=== PATIENT | male | born 1945 | race Caucasian/White ===

== ENCOUNTER → 2022-08-26 11:22 | Outpatient (CLI) | payer MEDICARE, OTHER, SELFPAY ==
[2022-08-26 12:51] LABS: Alanine Aminotransferase 23 IU/L (<50); Albumin 4.1 g/dL (3.5-5.0); Albumin Globulin Ratio 1.3 (1.0-2.8); Alkaline Phosphatase 57 U/L (38-126); Aspartate Aminotransferase 24 IU/L (17-59); BUN Creatinine Ratio 20.4 (6-22); Bilirubin Total 0.8 mg/dL (0.2-1.3); Blood Urea Nitrogen 22 mg/dL (9-20); Calcium 9.2 mg/dL (8.4-10.2); Carbon Dioxide 29 mmol/L (22-32); Chloride 102 mmol/L (98-107); Estimated Glomerular Filt Rate > 60 mL/min (>60); Globulin 3.2 g/dL (1.7-4.1); Glucose 90 mg/dL (80-110); HEMOLYSIS < 15 (0-50); Potassium 4.7 mmol/L (3.4-5.1); Sodium 138 mmol/L (137-145); Total Protein 7.3 g/dL (6.3-8.2)
[2022-08-26 13:09] LABS: Free T3, Triiodothyronine Free 4.32 pg/mL (2.77-5.27); Free T4, Direct Thyroxine 1.09 ng/dL (0.78-2.19)
[2022-08-26 13:20] LABS: Prostate Specific Antigen Scrn 1.66 ng/mL (0.1-4.0)
[2022-08-26 13:22] LABS: Thyroid Stimulating Hormone 3.16 uIU/mL (0.47-4.68)
[2022-08-26 15:37] LABS: Creatinine Urine Random 139.2 mg/dL
[2022-08-26 15:51] LABS: Microalbumin Urine Random < 0.6 mg/dL (0-1.6)
[2022-08-29 17:49] LABS: Hep C Virus Ab w/Reflex Quant NEGATIVE s/c (NEGATIVE)
== END ==
PROVIDERS: PCP Nurse Practitioner; Referring Provider Nurse Practitioner; Visit Provider Nurse Practitioner
DX: Z12.5 Encounter for screening for malignant neoplasm of prostate (principal); E78.5 Hyperlipidemia, unspecified; I10 Essential (primary) hypertension; Z11.59 Encounter for screening for other viral diseases
CPT/HCPCS: 80053; 82043; 82570; 84439; 84443; 84481; 86803; G0103

== ENCOUNTER → 2022-08-29 07:28 | Outpatient (CLI) | payer MEDICARE, OTHER, SELFPAY ==
[2022-09-01 18:49] LABS: Fecal Immunochemical Test Negative (Negative)
== END ==
PROVIDERS: PCP Nurse Practitioner; Referring Provider Nurse Practitioner; Visit Provider Nurse Practitioner
DX: Z12.11 Encounter for screening for malignant neoplasm of colon (principal)
CPT/HCPCS: 82274

== ENCOUNTER → 2022-09-24 06:48 | Outpatient (CLI) | payer MEDICARE, OTHER, SELFPAY ==
--- NOTE | 2022-09-24 06:50 | DI.ECHO.S_ITS ---
[facility]---------+ [facility] +---------+ : : [address] : [address] [address] : : : : [id number] : : : : Phone: [phone]---------+ Echocardiogram Report + + :Name: YUE SQUIRES Study Date: 09/24/2022 Height: 68 in : :[facility] ReadingLocation: Weight: 162 lb : : Gender: Male BSA: 1.9 m2 : :: 1945 Age: 77 yrs BP: 152/87 mmHg: :Reason For Study: HYPERTENSION : :Ordering Physician: ADELA, : :ZARHA Performed By: Magi Pena : :Referring: ZAHRA CHAPMAN : + + Interpretation Summary The left ventricle is normal in size. The left ventricular ejection fraction is normal. The ejection fraction is estimated to be 60-65%. The right ventricle is normal in size and function. The aortic valve is severely calcified. There is severely reduced leaflet mobility. The peak aortic velocity is 4.4 m/sec. The aortic valve mean gradient is 47 mmHg. The calculated aortic valve area is 0.68 cm2. sev ratio: 0.19 GORDON indexed to BSA (cm^2/m^2): 0.40 There is severe aortic stenosis. There is mild aortic regurgitation. There is mild tricuspid regurgitation. The right ventricular systolic pressure is estimated to be at least 20 mmHg based on an estimated right atrial pressure of 3 mm Hg. Mild atherosclerotic plaque(s) in the aortic arch. Consult cardiology for TAVR evaluation. Procedure: A two-dimensional transthoracic echocardiogram with color flow and Doppler was performed. The study quality was technically adequate. There is no prior echocardiogram noted for this patient. The patient was in sinus bradycardia with heart rates between 57-65 bpm during the exam. Left Ventricle: The left ventricle is normal in size. There is mild concentric left ventricular hypertrophy. There is no thrombus. The ejection fraction is estimated to be 60-65%. The left ventricular ejection fraction is normal. There are no focal wall motion abnormalities. Diastolic parameters suggest a relaxation abnormality of the left ventricle, consistent with probable normal filling pressures. Right Ventricle: The right ventricle is normal in size and function. Atria: The left atrial size is normal. Right atrial size is normal. There is no Doppler evidence for an interatrial shunt. Mitral Valve: There is mild mitral annular calcification. There is mild mitral regurgitation. Aortic Valve: The aortic valve is severely calcified. There is severely reduced leaflet mobility. There is severe aortic stenosis. The peak aortic velocity is 4.4 m/sec. The aortic valve mean gradient is 47 mmHg. The calculated aortic valve area is 0.68 cm2. There is mild aortic regurgitation. Tricuspid Valve: The tricuspid valve is normal. There is mild tricuspid regurgitation. The right ventricular systolic pressure is estimated to be at least 20 mmHg based on an estimated right atrial pressure of 3 mm Hg. Pulmonic Valve: The pulmonic valve is not well visualized. There is trace pulmonic regurgitation. Great Vessels: The aortic root is normal size. The dimensions of the ascending aorta are normal. Mild atherosclerotic plaque(s) in the aortic arch. The IVC is of normal diameter and collapses greater than 50% with a sniff. This suggests a low right atrial pressure of 3 mm Hg. Pericardium/ Pleura There is no pericardial effusion. There is no pleural effusion. MMode/2D Measurements & Calculations LVIDd: 4.8 cm LVOT diam: 2.2 cm LVIDs: 3.4 cm Ao root diam: 3.4 cm FS: 29.3 % asc Aorta Diam: 3.4 cm EPSS: 0.96 cm Ao Arch Diam (Prox Trans): 2.6 cm IVSd: 1.2 cm LVPWd: 1.0 cm LV baker. diameter/BSA (cm/m^2): 2.6 LV sys. diameter/BSA (cm/m^2): 1.8 LA A2 area: 19.2 cm2 RA long axis: 4.9 cm LA A4 area: 13.1 cm2 RA area: 15.5 cm2 LA length (vol): 4.7 cm RA vol: 41.4 ml LA vol: 45.2 ml RA : 22.2 ml/m2 LA vol index: 24.2 ml/m2 IVC diam: 1.5 cm RVD1 (basal): 3.5 cm RVD2 (mid): 2.5 cm TAPSE: 2.6 cm Doppler Measurements & Calculations Ao V2 max: 435.3 cm/sec LVOT Max Yoni: 76.6 cm/sec Ao V2 mean: 311.9 cm/sec LV V1 max P.3 mmHg Ao max P.8 mmHg LV V1 VTI: 20.8 cm Ao mean P.6 mmHg GORDON(I,D): 0.74 cm2 Ao V2 VTI: 108.5 cm GORDON(V,D): 0.68 cm2 sev ratio: 0.19 GORDON indexed to BSA (cm^2/m^2): 0.40 MV E max yoni: 68.5 cm/sec TR max yoni: 208.6 cm/sec MV A max yoni: 95.7 cm/sec TR max P.4 mmHg MV E/A: 0.72 PA V2 max: 110.4 cm/sec Med Peak E' Yoni: 5.7 cm/sec PA V2 mean: 76.2 cm/sec E/E' med: 12.0 PA mean P.6 mmHg Lat Peak E' Yoni: 6.7 cm/sec PA pr(Accel): 32.8 mmHg E/E' lat: 10.2 E/e' average: 11.1 MV dec time: 0.24 sec SV(LVOT): 80.3 ml Reading Physician:10:51 AM
== END ==
PROVIDERS: PCP Nurse Practitioner; Referring Provider Nurse Practitioner; Visit Provider Nurse Practitioner
DX: I08.3 Combined rheumatic disorders of mitral, aortic and tricuspid valves (principal); I70.0 Atherosclerosis of aorta; I10 Essential (primary) hypertension
CPT/HCPCS: 93005; 93306

== ENCOUNTER 2022-10-26 21:50 | Emergency (ER) | payer MEDICARE, OTHER, SELFPAY ==
[2022-10-26 22:04] VITALS: BP 124/74; PULSE 75; RESP 16; TEMP 36.7; O2SAT 96; BMI 25.2
[2022-10-26 22:06] VITALS: PULSE 66; O2SAT 96
[2022-10-26 22:07] VITALS: BP 124/72; PULSE 74; O2SAT 95
--- NOTE | 2022-10-26 22:07 | DI.RAD.S_ITS ---
PROCEDURE: XR HAND LT MIN 3V INDICATIONS: hit hand with hammer, increased swelling and pain TECHNIQUE: Three views of the left hand acquired. COMPARISON: None. FINDINGS: Bones: No displaced fractures or dislocations. Carpal bones are normally aligned. No suspicious bony lesions. Soft tissues: No suspicious soft tissue calcifications. IMPRESSION: 1. No displaced fracture or dislocation. Dictated by: Solo Castillo M.D. on 10/26/2022 at 23:16 Approved by: Solo Castillo M.D. on 10/26/2022 at 23:16
--- NOTE | 2022-10-26 22:14 | PC.NURSE ---
pt was driving stake into the ground when the hammer bounced off and hit his left hand, pt states the hand was ok with no motor or sensory deficits he went home iced and elevated the hand and took some ibuprofen, now the hand is bruised, painful and swollen with decreased movement d/t pain
[2022-10-26 22:30] VITALS: BP 107/55; PULSE 62; RESP 18; O2SAT 94
[2022-10-26 23:00] VITALS: BP 118/65; PULSE 61; O2SAT 93
[2022-10-26 23:30] VITALS: BP 103/50; PULSE 56; O2SAT 95
--- NOTE | 2022-10-26 23:55 | ED.GENADULT ---
HPI - General Adult General Chief complaint: Extremity Injury, Upper Stated complaint: clipped hand with a stake earlier now swollen Time Seen by Provider: 10/26/22 23:55 Source: patient and family Mode of arrival: Ambulatory History of Present Illness HPI narrative: 77-year-old gentleman with a history of hypertension, coronary artery disease scheduled for an angioplasty later this week was working out in the [employer] and pounding a steak into the garden when he hit the dorsum of his hand close to the thenar webspace with a hammer. Initially did not think much about it and was able to finish his project in the garden including hammering more steaks. Over the course of the evening the hand became more and more swollen to the point he was unable to flex the hand at all and the pain was becoming problematic. He did take 2 ibuprofen and comes in for further evaluation. He notes that he has full sensation to all of his fingers and is able to move his fingers hand and wrist as much as swelling will allow. 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 Brother Tonsil cancer Sister Cancer Sister Respiratory failure Social History Smoking Status: Never smoker Smoking Status: Never smoker Substance Use Type: does not use Exam Initial Vital Signs Initial Vital Signs: Vital Signs Temperature 98.0 F 10/26/22 22:04 Pulse Rate 75 10/26/22 22:04 Respiratory Rate 16 10/26/22 22:04 Blood Pressure 124/74 10/26/22 22:04 Pulse Oximetry 96 10/26/22 22:04 Oxygen Delivery Method Room Air 10/26/22 22:04 General: Alert appropriate in no acute distress Respiratory: Able to speak in full sentences, no obvious respiratory distress Skin: No obvious rashes, warm and dry Neurologic: Grossly intact no obvious asymmetries or abnormalities Psych: appropriate insight and affect, cooperative Extremity: Left hand with significant hematoma over the dorsum of the hand extending into the palmar surface. Fingers are able to move with good capillary refill. Fingers are warm to the touch. He complains of tenderness over the dorsum of the hand due to swelling. There is no obvious skin abrasion or laceration Course Orders Ordered: ED Orders 10/26/22 22:07 XR hand LT min 3V Stat Vital Signs Vital signs: Vital Signs - 8 hr 10/26/22 22:04 Temperature 98.0 F Pulse Rate 75 Respiratory Rate 16 Blood Pressure 124/74 Pulse Oximetry 96 Oxygen Delivery Method Room Air Medical Decision Making MDM Narrative Medical decision making narrative: CC: Hand injury Complicating co-morbidities: On a baby aspirin, scheduled for angioplasty in 4 days Data collected from: patient, Differential considered: Contusion, underlying fracture, compartment syndrome Exam documented above, pertinent findings include: Severe swelling but fingers remain nontender a neurovascularly intact Imaging studies independently reviewed: Hand x-ray does not suggest any acute fractures Treatments: Using ortho glass, splint is fabricated simply to allow the hand to rest in a protected position. The splint is made to be easily removed and he is given an Joseph wrap to help with decreasing the swelling and overall mobility. He is informed that this is purely for pain control and he needs to make sure that it is not get too tight. After application by me, he is completely neurovascularly intact and finds that the immobilization is actually quite helpful with pain control Discussion: Contusion to the left hand with what looks like venous blood vessel rupture in significant bleeding into the midportion of the hand. The bleeding does seem to have stopped at this point. There is no bony underlying injury. He is neurovascularly intact. Splint is fashioned for pain control. Discussed keeping the hand elevated follow-up with his primary care doctor and also discussed the projected very extended healing time to get rid of all of the ecchymosis. I suspect it will be well over a month before all of the discoloration has resolved. Questions are answered and he is safe for discharge home Discharge Plan Departure Patient Disposition: Home Clinical Impression: Traumatic hematoma of hand Qualifiers: Encounter type: initial encounter Laterality: left Qualified Code(s): S60.222A - Contusion of left hand, initial encounter Instructions: DI for Hematoma (Bruise) Activity Restrictions/Additional Instructions: Thank you for coming in today You have a large bruise through the middle of your left hand. I suspect you broke a small blood vessel that continued to bleed. Fortunately, there are no broken bones. The splint I have fashioned is simply for comfort. You can take it off. We will find that the white portion of it maintains shape and you can use it with the Joseph wrap as is comfortable for you. Keep the hand above the level of your heart if you are experiencing any throbbing. Using 400 mg of ibuprofen (2 [id number] pills) and 1 Tylenol every 6 hours can be very helpful in controlling pain. Please look through your angiogram instructions, they may have asked that you avoid ibuprofen prior to the procedure. If that is the case, please use Tylenol. If you find that you are getting worse or develop any new symptoms, please feel free to return to the emergency department for further evaluation. Prescriptions: No Action amlodipine 10 mg tablet 10 mg PO DAILY Qty: 90 3RF Referrals: Maryanne Negron ARNP [Primary Care Provider] - Stand Alone Forms: Patient Portal/API
[2022-10-27] VITALS: BP 108/53; PULSE 65; RESP 18; O2SAT 95
== END 2022-10-27 00:21 | disposition home or self-care (01) ==
PROVIDERS: Emergency Provider Emergency Medicine; PCP Nurse Practitioner
DX: S60.222A Contusion of left hand, initial encounter (principal); W22.8XXA Striking against or struck by other objects, initial encounter
CPT/HCPCS: 73130; 99281; 99283

== ENCOUNTER → 2022-10-27 14:03 | Outpatient (CLI) | payer MEDICARE, OTHER, SELFPAY ==
[2022-10-27 14:24] LABS: Add Manual Diff / Slide Review NO; Basophils Absolute Auto 0 /uL (0-100); Basophils Percent Auto 0.8 % (0-2); Eosinophils Absolute Auto 100 /uL (0-450); Hemoglobin 12.9 g/dL (13.5-17.5); Lymphocytes Absolute Auto 2000 /uL (1100-4500); Lymphocytes Percent Auto 35.1 % (25-40); Mean Corpuscular HGB Conc 33.9 % (30-36); Mean Corpuscular Hemoglobin 30.9 PG (26-34); Mean Corpuscular Volume 91.1 fL (80-100); Monocytes Absolute Auto 600 /uL (0-900); Monocytes Percent Auto 10.6 % (3-14); Neutrophils Absolute Auto 3000 /uL (1500-7000); Neutrophils Percent Auto 51.5 % (50-75); Platelet Count 271 X10^3/uL (150-400); Red Blood Cell Count 4.17 X10^6/uL (4.5-5.9); Red Cell Distribution Width 13.9 % (11.6-14.8); White Blood Cell Count 5.8 X10^3/uL (4.5-11.0)
[2022-10-27 14:41] LABS: BUN Creatinine Ratio 25.5 (6-22); Blood Urea Nitrogen 28 mg/dL (9-20); Calcium 9.3 mg/dL (8.4-10.2); Carbon Dioxide 26 mmol/L (22-32); Chloride 103 mmol/L (98-107); Estimated Glomerular Filt Rate > 60 mL/min (>60); Glucose 114 mg/dL (80-110); HEMOLYSIS < 15 (0-50); Sodium 137 mmol/L (137-145)
== END ==
PROVIDERS: PCP Nurse Practitioner; Referring Provider Internal Medicine; Visit Provider Internal Medicine
DX: I35.0 Nonrheumatic aortic (valve) stenosis (principal)
CPT/HCPCS: 36415; 80048; 85025

== ENCOUNTER → 2022-12-31 13:45 | Outpatient (CLI) | payer MEDICARE, OTHER, SELFPAY ==
[2022-12-31 14:50] LABS: BUN Creatinine Ratio 20.8 (6-22); Blood Urea Nitrogen 26 mg/dL (9-20); Calcium 9.6 mg/dL (8.4-10.2); Carbon Dioxide 26 mmol/L (22-32); Chloride 103 mmol/L (98-107); Estimated Glomerular Filt Rate 60 mL/min (>60); Glucose 88 mg/dL (80-110); HEMOLYSIS < 15 (0-50); Potassium 4.4 mmol/L (3.4-5.1); Sodium 138 mmol/L (137-145)
[2022-12-31 14:51] LABS: Add Manual Diff / Slide Review NO; Basophils Absolute Auto 0 /uL (0-100); Basophils Percent Auto 0.8 % (0-2); Eosinophils Absolute Auto 100 /uL (0-450); Eosinophils Percent Auto 2.6 % (2-4); Hematocrit 39.9 % (41-53); Hemoglobin 13.3 g/dL (13.5-17.5); Lymphocytes Absolute Auto 1800 /uL (1100-4500); Lymphocytes Percent Auto 30.8 % (25-40); Mean Corpuscular HGB Conc 33.3 % (30-36); Mean Corpuscular Hemoglobin 29.9 PG (26-34); Mean Corpuscular Volume 89.8 fL (80-100); Monocytes Absolute Auto 600 /uL (0-900); Neutrophils Absolute Auto 3200 /uL (1500-7000); Neutrophils Percent Auto 54.8 % (50-75); Platelet Count 270 X10^3/uL (150-400); Red Blood Cell Count 4.45 X10^6/uL (4.5-5.9); Red Cell Distribution Width 13.5 % (11.6-14.8); White Blood Cell Count 5.8 X10^3/uL (4.5-11.0)
== END ==
PROVIDERS: PCP Nurse Practitioner; Referring Provider Internal Medicine Interventional Cardiology; Visit Provider Internal Medicine Interventional Cardiology
DX: I35.0 Nonrheumatic aortic (valve) stenosis (principal)
CPT/HCPCS: 36415; 80048; 85025; 85610

== ENCOUNTER → 2023-12-10 08:06 | Outpatient (CLI) | payer MEDICARE, OTHER, SELFPAY ==
[2023-12-10 09:17] LABS: Add Manual Diff / Slide Review NO; Basophils Absolute Auto 0 /uL (0-100); Basophils Percent Auto 0.9 % (0-2); Eosinophils Absolute Auto 100 /uL (0-450); Eosinophils Percent Auto 2.6 % (2-4); Hematocrit 41.6 % (41-53); Hemoglobin 14.2 g/dL (13.5-17.5); Lymphocytes Absolute Auto 1400 /uL (1100-4500); Lymphocytes Percent Auto 28.8 % (25-40); Mean Corpuscular Hemoglobin 30.5 PG (26-34); Mean Corpuscular Volume 89.6 fL (80-100); Monocytes Absolute Auto 600 /uL (0-900); Neutrophils Absolute Auto 2700 /uL (1500-7000); Neutrophils Percent Auto 54.7 % (50-75); Platelet Count 207 X10^3/uL (150-400); Red Blood Cell Count 4.64 X10^6/uL (4.5-5.9); Red Cell Distribution Width 14.3 % (11.6-14.8)
[2023-12-10 09:59] LABS: Alanine Aminotransferase 21 IU/L (<50); Albumin Globulin Ratio 1.3 (1.0-2.8); Alkaline Phosphatase 61 U/L (38-126); Aspartate Aminotransferase 27 IU/L (17-59); BUN Creatinine Ratio 19.2 (6-22); Bilirubin Total 0.8 mg/dL (0.2-1.3); Blood Urea Nitrogen 19 mg/dL (9-20); Calcium 9.3 mg/dL (8.4-10.2); Carbon Dioxide 28 mmol/L (22-32); Chloride 105 mmol/L (98-107); Cholesterol 223 mg/dL (140-199); Estimated Glomerular Filt Rate > 60 mL/min (>60); Glucose 79 mg/dL (80-110); HDL Cholesterol 37 mg/dL (40-60); HEMOLYSIS < 15 (0-50); LDL Cholesterol Calculated 149 mg/dL (<100); Potassium 4.3 mmol/L (3.4-5.1); Sodium 139 mmol/L (137-145); Triglycerides 185 mg/dL (35-150)
[2023-12-10 10:25] LABS: Prostate Specific Antigen Scrn 1.55 ng/mL (0.1-4.0)
== END ==
PROVIDERS: PCP Family Medicine; Referring Provider Family Medicine; Visit Provider Family Medicine
DX: E78.5 Hyperlipidemia, unspecified (principal); Z12.5 Encounter for screening for malignant neoplasm of prostate; I10 Essential (primary) hypertension; R01.1 Cardiac murmur, unspecified
CPT/HCPCS: 36415; 80053; 80061; 85025; G0103

== ENCOUNTER → 2024-07-08 07:48 | Outpatient (CLI) | payer MEDICARE, OTHER, SELFPAY ==
[2024-07-08 09:00] LABS: Cholesterol 167 mg/dL (140-199); HDL Cholesterol 38 mg/dL (40-60); LDL Cholesterol Calculated 101 mg/dL (<100); Triglycerides 138 mg/dL (35-150)
== END ==
PROVIDERS: PCP Family Medicine; Referring Provider Internal Medicine; Visit Provider Internal Medicine
DX: E78.2 Mixed hyperlipidemia (principal)
CPT/HCPCS: 36415; 80061

== ENCOUNTER → 2024-11-03 12:31 | Outpatient (CLI) | payer MEDICARE, OTHER, SELFPAY ==
--- NOTE | 2024-11-03 12:33 | DI.ECHO.S_ITS ---
[facility] +---------+ [facility] : : [address] : : [address] : : [id number] : : Phone: [phone] Echocardiogram Report + + :Name: YUE SQUIRES Study Date: 11/03/2024 Height: 67 in : :[facility] ReadingLocation: Weight: 160 lb : : Gender: Male BSA: 1.8 m2 : :: 1945 Age: 79 yrs BP: 160/80 mmHg: :Reason For Study: AORTIC VALVE DISORDER : :Ordering Physician: ERVIN, : :SATINDER RECINOS Performed By: Magi Pena : :Referring: LISETH HOPPER : + + Interpretation Summary The ejection fraction is estimated to be 60-65%. Normal diastolic function. The right ventricle is normal in size and function. The right ventricular systolic pressure is estimated to be at least 32 mmHg based on an estimated right atrial pressure of 3 mm Hg. The prosthetic aortic valve is well-seated. There is trace perivalvular regurgitation around the prosthetic aortic valve. No significant change from prior study, in 01/2023 Procedure: A two-dimensional transthoracic echocardiogram with color flow and Doppler was performed. The study quality was technically adequate. Comparison is made with the echocardiogram of 02/06/2023. The patient was in sinus rhythm with heart rates between 57-77 bpm during the exam. Left Ventricle: The left ventricle is normal in size. Left ventricular wall thickness is borderline increased. The ejection fraction is estimated to be 60-65%. Left ventricular wall motion is normal. Normal diastolic function. Right Ventricle: The right ventricle is normal in size and function. Atria: The left atrial size is normal. Right atrial size is normal. There is no Doppler evidence for an interatrial shunt. Mitral Valve: The mitral valve leaflets are mildly calcified. There is no mitral valve stenosis. There is trace mitral regurgitation. 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 There is trace perivalvular regurgitation around the prosthetic aortic valve. There is trace intravalvular regurgitation through the prosthetic aortic valve. 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 The prosthetic aortic valve is well-seated. There is probable normal prosthetic aortic valve function. The peak aortic velocity is 2.5 m/sec. The aortic valve mean gradient is 15 mmHg. The calculated aortic valve area is 1.3 cm2. Tricuspid Valve: The tricuspid valve leaflets are thin and pliable. There is mild tricuspid regurgitation. The right ventricular systolic pressure is estimated to be at least 32 mmHg based on an estimated right atrial pressure of 3 mm Hg. Pulmonic Valve: The pulmonic valve leaflets are thin and pliable; valve motion is normal. There is mild pulmonic regurgitation. Great Vessels: The aortic root is normal size. The dimensions of the ascending aorta are normal. The IVC is of normal diameter and collapses greater than 50% with a sniff. This suggests a low right atrial pressure of 3 mm Hg. Pericardium/ Pleura There is no pericardial effusion. There is no pleural effusion. MMode/2D Measurements & Calculations LVIDd: 4.7 cm LVOT diam: 2.0 cm LVIDs: 3.2 cm asc Aorta Diam: 3.4 cm FS: 31.3 % Ao Arch Diam (Prox Trans): 2.8 cm EPSS: 1.1 cm IVSd: 1.1 cm LVPWd: 0.94 cm LV baker. diameter/BSA (cm/m^2): 2.6 LV sys. diameter/BSA (cm/m^2): 1.8 LA A2 area: 21.5 cm2 RA long axis: 4.9 cm LA A4 area: 15.5 cm2 RA area: 12.7 cm2 LA length (vol): 5.2 cm RA vol: 28.2 ml LA vol: 53.8 ml RA : 15.3 ml/m2 LA vol index: 29.3 ml/m2 IVC diam: 1.6 cm RVD1 (basal): 3.8 cm RVD2 (mid): 2.8 cm TAPSE: 2.0 cm Doppler Measurements & Calculations Ao V2 max: 250.9 cm/sec LVOT Max Yoni: 95.6 cm/sec Ao V2 mean: 173.4 cm/sec LV V1 max P.7 mmHg Ao max P.6 mmHg LV V1 VTI: 22.8 cm Ao mean P.9 mmHg GORDON(I,D): 1.4 cm2 Ao V2 VTI: 54.2 cm GORDON(V,D): 1.3 cm2 sev ratio: 0.42 GORDON indexed to BSA (cm^2/m^2): 0.75 AI P1/2t: 705.5 msec AI dec slope: 137.2 cm/sec2 MV E max oyni: 83.1 cm/sec TR max yoni: 268.0 cm/sec MV A max yoni: 108.5 cm/sec TR max P.7 mmHg MV E/A: 0.77 PA V2 max: 147.9 cm/sec Med Peak E' Yoni: 8.3 cm/sec PA V2 mean: 90.7 cm/sec E/E' med: 10.0 PA mean P.9 mmHg Lat Peak E' Yoni: 9.7 cm/sec PA pr(Accel): 37.0 mmHg E/E' lat: 8.6 E/e' average: 9.3 MV dec time: 0.28 sec MVA(VTI): 1.9 cm2 MV V2 mean: 63.1 cm/sec SV(LVOT): 75.1 ml MV mean P.8 mmHg MV V2 VTI: 38.6 cm Reading Physician:04:48 PM
== END ==
PROVIDERS: PCP Family Medicine; Referring Provider Family Medicine; Visit Provider Internal Medicine
DX: I07.1 Rheumatic tricuspid insufficiency (principal); Z95.2 Presence of prosthetic heart valve
CPT/HCPCS: 93306

== ENCOUNTER → 2025-02-06 07:07 | Outpatient (CLI) | payer MEDICARE, OTHER, SELFPAY ==
[2025-02-06 08:07] LABS: Cholesterol 198 mg/dL (140-199); HDL Cholesterol 46 mg/dL (40-60); Triglycerides 175 mg/dL (35-150)
== END ==
PROVIDERS: PCP Family Medicine; Referring Provider Family Medicine; Visit Provider Internal Medicine
DX: E78.2 Mixed hyperlipidemia (principal)
CPT/HCPCS: 36415; 80061